=== PATIENT | male | born 1945 ===

== ENCOUNTER 2022-07-13 19:44 | Emergency (ER) | payer OTHER, MEDICARE ==
[~2022-07-13] VITALS: Ht 193 cm; Wt 125.0 kg
--- NOTE | 2022-07-13 20:25 | NUR ---
PT WAS WALKING AFTER TRIAGE AND PASSED OUT FOR UNKNOWN REASONS. DIAPHORETIC AND PALE. WHEN HE AWOKE HE SAID HIS RIGHT KNEE HURT. SMALL ABRASION/PURPLE PAOLO. MOVED TO ROOM 10, ON MONITORS AND BG DONE. BROUGHT BACK. PT STATES HX OF A FIB. EKG BEING DONE.
[2022-07-13] MEDS ORDERED: LIDOcaine 1% (10mg/ml)w/preservative inj. 20ml MDV IJ ONE (21:05)
[2022-07-13] MEDS ORDERED: HYDROcodone/acetaminophen 5mg/325mg tablet PO ONE (21:05)
[2022-07-13] MEDS ORDERED: TRAM50TA2 PO ×2 (22:27→22:36)
[2022-07-13 23:02] VITALS: BP 152/111
== END 2022-07-13 23:04 | disposition home or self-care (01) ==
LOC: ER 19:45
DX: S62.396G Other fracture of fifth metacarpal bone, right hand, subsequent encounter for fracture with delayed healing (principal); S00.81XA Abrasion of other part of head, initial encounter; R55 Syncope and collapse; M25.461 Effusion, right knee; W18.39XA Other fall on same level, initial encounter; Y93.89 Activity, other specified; Y92.89 Other specified places as the place of occurrence of the external cause; Y99.8 Other external cause status; X58.XXXD Exposure to other specified factors, subsequent encounter
CPT/HCPCS: 29125; 70450; 72125; 73120; 73130; 73564; 82948; 93005; 99284; A4615; A6449